=== PATIENT | female | born 1940 | race Caucasian/White ===

== ENCOUNTER 2017-04-26 07:28 | Inpatient (IN) | payer BC, OTHER ==
[2017-03-25 12:53] VITALS: BMI 28.0
--- NOTE | 2017-03-25 13:24 | PAT Medication Instructions ---
Service Date Mar 25, 2017. Current Home Medication List Amitriptyline Hcl (Elavil), 50 MG PO HS Hydrocodon/Acetaminophen 7.5MG/300MG (Vicodin Es (7.5MG/300MG)), 1 TAB PO Q4 PRN for Pain Lisinopril (Zestril), 40 MG PO QAM Naproxen (Aleve), 220 MG PO BID PRN for Pain Medication Instructions For Your Scheduled Surgery -Stopped at surgeon's instructions: Naproxen (Aleve), 220 MG PO BID PRN for Pain - Hold the following medications the morning of surgery: Lisinopril (Zestril), 40 MG PO QAM - Take the following medications the morning of surgery with a sip of water OTHERWISE NOTHING TO EAT OR DRINK AFTER MIDNIGHT: Hydrocodon/Acetaminophen 7.5MG/300MG (Vicodin Es (7.5MG/300MG)), 1 TAB PO Q4 PRN for Pain (may take if needed up to 4 hours prior to surgery) - Take the following medications as scheduled the night before surgery: Amitriptyline Hcl (Elavil), 50 MG PO HS Hydrocodon/Acetaminophen 7.5MG/300MG (Vicodin Es (7.5MG/300MG)), 1 TAB PO Q4 PRN for Pain If you have any questions please call us at [phone] or [phone] or [phone]
--- NOTE | 2017-03-25 14:19 | DIAGNOSTIC IMAGING REPORT ---
CHEST PREADMISSION(PA/LAT) HISTORY: 76 years-old Female preadmission exam COMPARISON: None available TECHNIQUE: Frontal and lateral views of the chest FINDINGS: Note is made of an azygos lobe and fissure. Cardiac silhouette is within normal limits. There is atherosclerosis of the aorta. No pneumothorax, pleural effusion or focal airspace consolidation. There is no overt pulmonary edema. There is a large hiatal hernia with partially intrathoracic stomach. Moderate degenerative changes are seen within the shoulders bilaterally. There is sigmoidal scoliosis of the thoracolumbar spine. IMPRESSION: 1. No acute cardiopulmonary process. 2. Large hiatal hernia with partially intrathoracic stomach. The above report was generated using voice recognition software. It may contain grammatical, syntax or spelling errors. Electronically signed by: Jason Lehman M.D. 03/25/2017 2:18 PM Dictated Date/Time: 03/25/2017 2:17 PM
[2017-03-25 14:54] LABS: BASO % 0.5 %; BASO ABS # 0.03 K/uL (0-0.2); COMPLETE YES; HEMATOCRIT 46.3 % (37-47); IG% 0.2 %; LYMPH % 28.1 %; LYMPH ABS # 1.58 K/uL (1.2-3.4); MEAN CELL VOLUME 93.3 fL (80-100); MEAN CORPUSCULAR HEMOGLOBIN 30.6 pg (25-34); MEAN CORPUSCULAR HGB CONC 32.8 g/dl (32-36); MEAN PLATELET VOLUME 9.7 fL (7.4-10.4); MONO % 7.3 %; NEUT % 61.9 %; PLATELET COUNT 199 K/uL (130-400); RED BLOOD COUNT 4.96 M/uL (4.2-5.4); WHITE BLOOD COUNT 5.63 K/uL (4.8-10.8)
[2017-03-25 14:58] LABS: URINE APPEARANCE CLEAR (CLEAR); URINE BILIRUBIN NEG (NEG); URINE COLOR YELLOW; URINE NITRITE NEG (NEG); URINE SPECIFIC GRAVITY 1.014 (1.000-1.030); UROBILINOGEN NEG (NEG); ZZUR CULT IF INDIC CLEAN CATCH NO
[2017-03-25 15:04] LABS: MANUAL MICROSCOPIC REQUIRED? NO; REVIEW REQ? NO
[2017-03-25 15:04] LABS: CALCIUM 9.4 mg/dl (8.5-10.1); CREATININE 0.92 mg/dl (0.60-1.20); POTASSIUM 4.6 mmol/L (3.5-5.1)
[2017-04-26] VITALS (8 sets, daily range): BP systolic 116–161; BP diastolic 53–94; PULSE 83–93; TEMP 36.5–37.1; O2SAT 92–98; Ht 162.6 cm; Wt 76.0 kg
[~2017-04-26] VITALS: Ht 162.6 cm; Wt 76.0 kg
[~2017-04-26 07:28] MED LIST: ALBUMIN HUMAN 5% 12.5 GM/250 ML VIAL IV ONE; AMT50 PO; ATROPINE SULFATE 0.1 MG/ML 5ML SYR IV PRN; EpHEDrine SULFATE INJ 50 MG/ML AMP IV PRN; FENTANYL CITRATE INJ 50 MCG/1 ML 2 ML VIAL IV PRN; HYDR-3714 PO; HYDROmorphone INJ 1 MG/ML SYR IV PRN; LACTATED RINGER'S 1000ML 1,000 ML IV SCH; LISI40TA PO; NAPR1TAB9 PO; ONDANSETRON INJ 2 MG/ML 2 ML VIAL IV PRN
[2017-04-26] MEDS ORDERED: MIDAZOLAM HCL 1 MG/ML 2ML VIAL ONE (09:35)
[2017-04-26] MEDS ORDERED: FENTANYL CITRATE INJ 50 MCG/1 ML 2 ML VIAL ONE ×6 (09:35→15:23)
--- NOTE | 2017-04-26 09:45 | History & Physical Bridge Note ---
H&P Re-Evaluation Bridge Note: I have examined the patient, reviewed the History & Physical and in the interval since the performance of the History & Physical I have noted the following changes of clinical significance: No changes noted
--- NOTE | 2017-04-26 09:47 | History and Physical ---
History & Physical Date Apr 26, 2017. Chief Complaint Back and leg pain History of Present Illness The patient is a 76 year old female with complaints of back and leg pain Additional History Hepatic Disease: No Endocrine Disorder: No Kidney Disease: No Hypertension: Yes Heart Disease: No Bleeding Tendencies: No Infectious Diseases: No Allergies Coded Allergies: No Known Allergies (Unverified , 04/26/17) Home Medications Scheduled Amitriptyline Hcl (Elavil), 50 MG PO HS Lisinopril (Zestril), 40 MG PO QAM Scheduled PRN Hydrocodon/Acetaminophen 7.5MG/300MG (Vicodin Es (7.5MG/300MG)), 1 TAB PO Q4 PRN for Pain Naproxen (Aleve), 220 MG PO BID PRN for Pain Physical Examination Skin: warm/dry, no rash Eyes: normal inspection, EOMI, sclerae normal ENT: normal ENT inspection, pharynx normal Head: normocephalic, atraumatic Neck: supple, no adenopathy, trachea midline Respiratory/Chest: lungs clear, normal breath sounds, no respiratory distress Cardiovascular: regular rate, rhythm, no edema, no murmur Abdomen / GI: normal bowel sounds, non tender Back: normal inspection Extremities: normal inspection, normal range of motion Neurologic/Psych: no motor/sensory deficits, alert, normal reflexes, oriented x 3 Diagnosis Lumbar spinal stenosis with degenerative scoliosis Plan of Treatment Lumbar decompression fusion T10 to S1 possible iliac bolts
[2017-04-26] MEDS ORDERED: NURSING VERBAL MED ORDER STA (10:04)
[2017-04-26] MEDS ORDERED: CEFAZOLIN IV 2,000 MG/60 ML D5W IV ONE (10:06)
[2017-04-26] MEDS ORDERED: BUPIVACAINE/EPINEPHRINE 0.5% MPF 1:200,000 30 ML VIAL ONE (10:10)
[2017-04-26] MEDS ORDERED: THROMBIN FOR SOLN 20000 UNIT KIT ONE (10:10)
[2017-04-26] MEDS ORDERED: BACITRACIN 50000 UNIT VIAL ONE (10:10)
[2017-04-26] MEDS ORDERED: HYDROmorphone INJ 2 MG/ML SYR/VIAL ONE ×3 (10:44→15:23)
[2017-04-26] MEDS ORDERED: EpHEDrine SULFATE 50MG/5ML SYR ONE ×2 (12:21→14:02)
[2017-04-26] MEDS ORDERED: PROPOFOL IV EMULSION 10 MG/ML 20 ML VIAL IV ONE (12:21)
[2017-04-26] MEDS ORDERED: DEXAMETHASONE SOD INJ 4 MG/ML VIAL ONE (12:21)
[2017-04-26] MEDS ORDERED: LIDOCAINE HCL 2% 2 ML VIAL (20MG/ML) ONE (12:21)
[2017-04-26] MEDS ORDERED: PHENYLEPHRINE 100MCG/ML 5ML SYR ONE ×2 (12:21→14:02)
[2017-04-26] MEDS ORDERED: VOLUVEN IN NSS ONE (13:40)
[2017-04-26] MEDS ORDERED: CEFAZOLIN SOD 1 GM VIAL ONE (13:40)
[2017-04-26] MEDS ORDERED: NEOSTIGMINE METHYLSULFATE 1 MG/ML 10ML VIAL ONE (14:02)
[2017-04-26] MEDS ORDERED: GLYCOPYRROLATE INJ 0.2 MG/ML VIAL ONE (14:02)
[2017-04-26] MEDS ORDERED: ONDANSETRON INJ 2 MG/ML 2 ML VIAL ONE (14:02)
[2017-04-26] MEDS ORDERED: ROCURONIUM BROMIDE 10 MG/ML 5 ML VIAL IV ONE (14:04)
[2017-04-26] MEDS ORDERED: SODIUM CHLORIDE 0.9% 1000ML 1,000 ML IV SCH (14:37)
[2017-04-26] MEDS ORDERED: LORAZEPAM INJ 0.5 MG in SYRINGE 0 ML IV PRN (14:45)
[2017-04-26] MEDS ORDERED: ACETAMINOPHEN IV 100 ML IV PRN (14:45)
[2017-04-26] MEDS ORDERED: DO NOT ADMINISTER FLU VACCINE PRN ×3 (14:45)
[2017-04-26] MEDS ORDERED: NALOXONE HCL 0.4 MG/1 ML VIAL/CARP IV PRN ×2 (14:45)
[2017-04-26] MEDS ORDERED: DO NOT ADMINISTER PNEUMOCOCCAL VACCINE PRN ×2 (14:45)
[2017-04-26] MEDS ORDERED: METOCLOPRAMIDE HCL INJ 5 MG/ML 2 ML VIAL IV PRN (14:45)
[2017-04-26] MEDS ORDERED: SOD PHOSPHATE/SOD BIPHOSPHATE ENEMA 132 ML BTL PR PRN (14:45)
[2017-04-26] MEDS ORDERED: MAGNESIUM HYDROXIDE SUSP 30 ML UDC PO PRN (14:45)
[2017-04-26] MEDS ORDERED: ACETAMINOPHEN 500 MG TAB PO PRN (14:45)
[2017-04-26] MEDS ORDERED: PROMETHAZINE HCL INJ 12.5 MG in SODIUM CHLORIDE 0.9% 50ML 50 ML IV PRN (14:45)
[2017-04-26] MEDS ORDERED: HYDROmorphone INJ 0.5 MG/0.5 ML SYR IV PRN (14:45)
[2017-04-26] MEDS ORDERED: BISACODYL 10 MG SUPP PR PRN (14:45)
[2017-04-26] MEDS ORDERED: FAMOTIDINE 20 MG TAB PO PRN (14:45)
[2017-04-26] MEDS ORDERED: hydrOXYzine HCL 25 MG TAB PO PRN (14:45)
[2017-04-26] MEDS ORDERED: ALUMINUM/MAGNESIUM SUSP 30 ML UDC PO PRN (14:45)
[2017-04-26] MEDS ORDERED: FLOSEAL HEMOSTATIC MATRIX 10ML TOP ONE (14:46)
--- NOTE | 2017-04-26 14:49 | DIAGNOSTIC IMAGING REPORT ---
LUMBAR SPINE 2 OR 3 VIEW HISTORY: 76 years-old Female T10-S1 DECOMPRESSION/FUSION status post posterior decompression with interbody fusion at L3-L4 and L4-L5 COMPARISON: None available TECHNIQUE: 7 spot fluoroscopic images of the lumbar spine were obtained utilizing 66.4 minutes of fluoroscopy time. FINDINGS: Posterior interbody miguel and screw fusion hardware is seen which appears to extend from L1 through S1. Discectomy changes are seen at L4-L5 and L5-S1. There is convex right curvature of the lumbar spine. Follow-up lumbar spine radiographs may be beneficial to confirm exact levels. No malalignment or complication identified. IMPRESSION: Fluoroscopic assistance as above. The above report was generated using voice recognition software. It may contain grammatical, syntax or spelling errors. Electronically signed by: Jason Lehman M.D. 04/26/2017 2:48 PM Dictated Date/Time: 04/26/2017 2:45 PM
--- NOTE | 2017-04-26 15:04 | [facility] Operative Report ---
Operative Report Operative Date Apr 26, 2017. Pre-Operative Diagnosis Lumbar spinal stenosis with degenerative scoliosis Post-Operative Diagnosis Lumbar spinal stenosis with degenerative scoliosis Procedure(s) Performed #1 lumbar decompression medial facetectomies foraminotomies L1 to L2 3 L3 4 L4 5. #2 posterior spinal fusion T11 to S1. #3 bilateral SI joint fusions. #4 placement posterior segmental instrumentation T12 to S1 with bilateral iliac bolts. #5 interbody fusion L3 4 L4 5. #6 placement peek cage 12 x 22 mm L3 4 and 12 x 22 mm at L4 5. #7 placement of locally harvested morcellized autograft in the posterior lateral gutters. #8 placement infuse collagen sponge about mask graft the posterior gutters and DBM in the interbody spaces. Surgeon Armature Winder Repairer Surgeon(s) Mata Nicholas PA-C Estimated Blood Loss 1325 ML Findings Severe spinal stenosis with degenerative scoliosis Specimens None per surgeon Description of Procedure Patient was met with preoperatively case discussed all questions are dressed. After informed consent patient was taken back to the operative suite and underwent intubation placed in a prone position on the Armin table on top Rian frame. All bony prominences were well-padded eyes inspected to ensure no external pressure. This time the thoracal lumbar spine was prepped and draped in the normal sterile fashion. Sharp dissection with the assistance of Bovie cautery was performed onto an exposing the lamina and transverse processes of T12 L1 L2 L3 L4 L5 sacral Michelle and bilateral SI joints. From a caudal to cephalad fashion laminectomy of L4 L3 L2 L1 was performed addressing severe lateral recess and foraminal disease. After this complete pedicle screws were placed in T12 L1 L2 L3-L4 L5-S1 and bilateral iliac bolts. Through a transforaminal port and left complete discectomy of L4 5 was performed and plate created to subcortical bleeding bone and a 12 x 22 mm peek cage filled with DBM tapped in position. I then proceeded L3 4 on the right. And again through a transforaminal approach complete discectomy was performed and plate created to subcortical bleeding bone and a 12 x 22 motor peek cage filled with DBM tapped in position. Purposes rods were then contoured locked and final position bilaterally. This point the transverse processes of T11-T12 L1 L2 L3 L4-L5 sacral Michelle in the bilateral SI joints were burred to subcortical bleeding bone. Infuse collagen sponge mask graft for fact directly into the SI joints in in the posterior lateral gutters. 15 round SAVITA drain was inserted. Incision was closed with 1 Vicryl in the fascia 2-0 Vicryl subcutaneous 40 Monocryl for final skin closure Steri-Strips sterile dressings placed. Patient we can take PACU stable condition. Please note Lauro Nicholas was present throughout the entire procedure involved in patient stationing complex portions of the procedure and final skin closure. I attest to the content of the Intraoperative Record and any orders documented therein. Any exceptions are noted below.
[2017-04-26] MEDS ORDERED: HYDROmorphone HCL 0.5MG/ML 50 ML CASSETTE ONE (15:23)
[2017-04-26] MEDS: ONDANSETRON INJ 2 MG/ML 2 ML VIAL IV PRN (15:43)
--- NOTE | 2017-04-26 15:59 | Anesthesiology Progress Note ---
Anesthesia Post Op Note Date & Time Apr 26, 2017 at 15:58 Vital Signs Pain Intensity: 6 Vital Signs Past 12 Hours Date Time Temp Pulse Resp B/P (MAP) Pulse Ox O2 Delivery O2 Flow Rate FiO2 04/26/17 15:25 36.0 93 16 108/82 100 Oxymask 10 04/26/17 08:15 36.6 88 20 161/94 Notes Mental Status: alert / awake / arousable, participated in evaluation Pt Amnestic to Procedure: Yes Nausea / Vomiting: adequately controlled Pain: adequately controlled Airway Patency, RR, SpO2: stable & adequate BP & HR: stable & adequate Hydration State: stable & adequate Anesthetic Complications: no major complications apparent
[2017-04-26] MEDS ORDERED: NURSING VERBAL MED ORDER ONE (16:00)
[2017-04-26] MEDS ORDERED: PROMETHAZINE HCL INJ 6.25 MG in SODIUM CHLORIDE 0.9% 50ML 50 ML IV PRN (16:15)
[2017-04-26] MEDS: HYDROmorphone HCL 0.5MG/ML 50 ML CASSETTE IV PRN ×2 (16:51→19:11)
[2017-04-26] MEDS: LACTATED RINGER'S 1000ML 1,000 ML IV SCH ×2 (16:53→20:44)
[2017-04-26] MEDS ORDERED: HYDROmorphone INJ 1 MG/ML SYR IV PRN (18:00)
[2017-04-26] MEDS: DEXAMETHASONE INJ 6 MG in SYRINGE 0 ML IV SCH (18:27)
--- NOTE | 2017-04-26 20:17 | Medical Consult ---
Consultation Date of Consultation: Apr 26, 2017. Attending Physician: Bubba Freitas D.O. Reason for Consultation: Post Op Medical Management History of Present Illness 76 year old female who is s/p multilevel decompression/fusion today by Dr. Freitas. Patient reports increasing back pain over the past several years. She failed outpatient conservative measures and therefore presented for the planned procedure today. Post operatively the patient is doing well. She reports her pain is well controlled. No numbness or tingling to the BLLE. She denies chest pain and shortness of breath. No abdominal pain or nausea. She denies lightheadedness and dizziness. Alexandra is place draining yellow urine. Past Medical/Surgical History Medical Problems: (1) Depression Status: Chronic (2) HTN (hypertension) Status: Chronic (3) Vaginal enterocele Permanent Comment: s/p repair Status: Chronic Surgical Problems: (1) H/O oophorectomy Status: Chronic (2) History of appendectomy Status: Chronic (3) History of hysterectomy Status: Chronic (4) History of right salpingo-oophorectomy Status: Chronic Family History non contributory due to patient's advanced age Social History Smoking Status: Never Smoker Alcohol Use: none Allergies Coded Allergies: No Known Allergies (Unverified , 04/26/17) Home Medications Vicodin Es (7.5MG/300MG) (Hydrocodon/Acetaminophen 7.5MG/300MG) 1 Tab Tab 1 Tab PO Q4 PRN Aleve (Naproxen) 220 Mg Tab 220 Mg PO BID PRN Elavil (Amitriptyline HCl) 50 Mg Tab 50 Mg PO HS Zestril (Lisinopril) 40 Mg Tab 40 Mg PO QAM Current Inpatient Medications Current Inpatient Medications Medications (Trade) Dose Ordered Sig/Steven Route Start Time Stop Time Status Last Admin Dose Admin Lactated Ringer's 1,000 ml @ 15 mls/hr Q24H IV 04/26/17 06:00 04/27/17 05:59 04/26/17 08:20 15 MLS/HR Dexamethasone Sodium Phosphate 6 mg/Syringe 1.5 ml @ 1 mls/min Q8H IV 04/26/17 18:00 04/27/17 10:02 04/26/17 18:27 1 MLS/MIN Promethazine HCl 12.5 mg/Sodium Chloride 50.5 ml @ 202 mls/hr Q6H PRN IV 04/26/17 14:45 05/26/17 14:44 Ondansetron HCl (Zofran Inj) 4 mg Q6H PRN IV 04/26/17 14:45 05/26/17 14:44 04/26/17 15:43 4 MG Metoclopramide HCl (Reglan Inj) 10 mg Q6H PRN IV 04/26/17 14:45 05/26/17 14:44 Lorazepam (Ativan Tab) 0.5 mg Q8H PRN PO 04/26/17 14:45 05/26/17 14:44 Lorazepam 0.5 mg/ Syringe 0.25 ml @ 1 mls/min Q8H PRN IV 04/26/17 14:45 05/26/17 14:44 Pneumococcal Polysaccharide Vaccine 1 ea PRN PRN N/A 04/26/17 14:45 05/26/17 14:44 Influenza Virus Vacc Triv Types A&B 1 ea PRN PRN N/A 04/26/17 14:45 05/26/17 14:44 Polyethylene (Miralax Powder Packet) 17 gm Q6 PO 04/28/17 06:00 05/28/17 05:59 Bisacodyl (Dulcolax Supp) 10 mg DAILY PRN SD 04/26/17 14:45 05/26/17 14:44 Magnesium Hydroxide (Milk Of Magnesia Susp) 30 ml DAILY PRN PO 04/26/17 14:45 05/26/17 14:44 Hydromorphone HCl (Dilaudid Inj) 0.5 mg Q3H PRN IV 04/26/17 14:45 05/10/17 14:44 Future hold Oxycodone HCl (Roxicodone Immediate Rel Tab) 5-10mg prn moderate to sev... Q4H PRN PO 04/27/17 06:00 05/11/17 05:59 Future hold Cefazolin Sodium 2000 mg/Dextrose 60 ml @ 100 mls/hr Q8H IV 04/26/17 18:00 04/27/17 06:35 Lactated Ringer's 1,000 ml @ 150 mls/hr Q6H40M IV 04/26/17 14:37 05/26/17 14:36 04/26/17 16:53 150 MLS/HR Acetaminophen (Tylenol Tab) 1,000 mg Q8H PRN PO 04/26/17 14:45 05/26/17 14:44 Acetaminophen 100 ml @ 400 mls/hr Q8H PRN IV 04/26/17 14:45 05/26/17 14:44 Naloxone HCl (Narcan Inj) 0.1 mg Q5M PRN IV 04/26/17 14:45 05/26/17 14:44 Senna/Docusate Sodium (Senokot S Tab) 2 tab HS PO 04/26/17 21:00 05/26/17 20:59 Sodium Biphosphate/ Sodium Phosphate (Fleet Enema) 132 ml ONE PRN SD 04/26/17 14:45 05/26/17 14:44 Hydroxyzine HCl (Vistaril Tab) 25 mg Q8H PRN PO 04/26/17 14:45 05/26/17 14:44 Al Hydroxide/Mg Hydroxide (Maalox Susp) 30 ml Q6H PRN PO 04/26/17 14:45 05/26/17 14:44 Famotidine (Pepcid Tab) 20 mg Q12 PRN PO 04/26/17 14:45 05/26/17 14:44 Diphenhydramine HCl (Benadryl Cap) 25 mg Q6H PRN PO 04/26/17 14:45 05/26/17 14:44 Naloxone HCl (Narcan Inj) 0.1 mg Q5M PRN IV 04/26/17 14:45 04/27/17 06:00 Hydromorphone HCl (Dilaudid Lithographer Apprentice) 25 mg PRN PRN IV 04/26/17 14:45 04/27/17 06:00 04/26/17 19:11 25 MG Sodium Chloride 1,000 ml @ 15 mls/hr Q24H IV 04/26/17 14:37 04/27/17 06:00 Amitriptyline HCl (Elavil Tab) 50 mg HS PO 04/26/17 21:00 05/26/17 20:59 Lisinopril (Zestril Tab) 40 mg QAM PO 04/27/17 09:00 05/27/17 08:59 Promethazine HCl 6.25 mg/Sodium Chloride 50.25 ml @ 202 mls/hr PRN PRN IV 04/26/17 16:15 04/26/17 23:59 04/26/17 16:15 202 MLS/HR Hydromorphone HCl (Dilaudid Inj) 1 mg Q3H PRN IV 04/26/17 18:00 05/10/17 17:59 Future hold Miscellaneous Information (Discontinue WELFARE SUPERVISOR) 1 ea TODAY@0600 N/A 04/27/17 06:00 04/27/17 06:01 Review of Systems ROS per HPI, all other systems reviewed and negative Physical Exam Date Time Temp Pulse Resp B/P (MAP) Pulse Ox O2 Delivery O2 Flow Rate FiO2 04/26/17 19:52 98 Room Air 04/26/17 19:44 36.6 93 16 116/67 (83) 98 Room Air 04/26/17 18:48 36.6 91 17 118/68 (85) 95 Nasal Cannula 2.0 04/26/17 17:45 36.6 85 17 123/53 (76) 95 Nasal Cannula 1.0 04/26/17 17:24 36.5 89 18 121/65 (83) 97 Nasal Cannula 2.0 04/26/17 16:50 92 Nasal Cannula 2.0 04/26/17 16:50 92 Nasal Cannula 2.0 04/26/17 16:50 36.6 83 18 123/66 (85) 92 Nasal Cannula 2.0 04/26/17 16:30 77 16 134/70 99 Nasal Cannula 2 04/26/17 16:15 36.0 84 20 150/80 98 Nasal Cannula 2 04/26/17 16:05 84 17 159/91 99 Nasal Cannula 2 04/26/17 15:55 98 15 167/94 99 Nasal Cannula 2 04/26/17 15:45 95 19 106/89 100 Oxymask 10 04/26/17 15:35 93 18 136/85 100 Oxymask 10 04/26/17 15:25 36.0 93 16 108/82 100 Oxymask 10 04/26/17 08:15 36.6 88 20 161/94 General Appearance: no apparent distress Head: normocephalic, atraumatic Eyes: normal inspection, sclerae normal ENT: hearing grossly normal Neck: supple, no JVD Respiratory/Chest: lungs clear, normal breath sounds, no respiratory distress Cardiovascular: regular rate, rhythm, no edema, normal peripheral pulses Abdomen/GI: normal bowel sounds, non tender, soft Back: + pertinent finding (s/p back surgery, drain in place draining bloody drainage, pedal pushes and pulls strong BL) Neurologic/Psych: no motor/sensory deficits, alert, normal mood/affect, oriented x 3 Skin: normal color, warm/dry Laboratory Results Last 24 Hours Test 04/26/17 13:45 Hemoglobin 10.4 g/dL Hematocrit 31.0 % Assessment & Plan S/P MULTILEVEL DECOMPRESSION/FUSION - POD#0 - activity and wound care orders as per ortho - pain control with bowel regimen - PT/OT - monitor H/H for acute blood loss anemia and transfuse blood products PRN - will check H/H at 2100; noted 1300ml EBL HTN - BP controlled, continue Lisinopril DEPRESSION - continue Elavil DVT PROPHYLAXIS - TEDs/SCDs per surgery Thank you for this consultation. We will follow the patient with you during their hospital stay. You can reach a [facility] via pager @ . ADDENDUM: I saw this pleasant 76 year old in room 302; doing well, WELFARE SUPERVISOR pump for pain, which is working SAVITA drain is in place, draining bloody discharge Monitor for blood loss anemia Otherwise, stable. PT/OT as per ortho
[2017-04-26] MEDS: DOCUSATE SODIUM/SENNA 50/8.6MG TAB PO SCH (20:44)
[2017-04-26] MEDS: AMITRIPTYLINE HCL 50 MG TAB PO SCH (20:44)
[2017-04-26] MEDS: CEFAZOLIN IV 2,000 MG in DEXTROSE 5% 50ML 50 ML IV SCH (22:01)
[2017-04-27] VITALS (21 sets, daily range): BP systolic 96–149; BP diastolic 56–79; PULSE 80–106; TEMP 36.7–37.2; O2SAT 90–96
[2017-04-27] MEDS: DEXAMETHASONE INJ 6 MG in SYRINGE 0 ML IV SCH ×2 (02:16→10:13)
[2017-04-27] MEDS: LACTATED RINGER'S 1000ML 1,000 ML IV SCH (03:26)
[2017-04-27] MEDS: CEFAZOLIN IV 2,000 MG in DEXTROSE 5% 50ML 50 ML IV SCH (05:29)
[2017-04-27] MEDS ORDERED: NURSING DECISION MEDICATION ORDER SCH (05:30)
[2017-04-27] MEDS ORDERED: DC PCA SCH (06:00)
[2017-04-27] MEDS ORDERED: OXYCODONE HCL IR 5 MG TAB (IMMEDIATE RELEASE) PO PRN (06:00)
[2017-04-27 06:39] LABS: HEMATOCRIT 24.9 % (37-47); IG% 0.5 %; LYMPH % 5.7 %; LYMPH ABS # 0.63 K/uL (1.2-3.4); MEAN CELL VOLUME 91.5 fL (80-100); MEAN CORPUSCULAR HEMOGLOBIN 30.9 pg (25-34); MEAN CORPUSCULAR HGB CONC 33.7 g/dl (32-36); MEAN PLATELET VOLUME 9.4 fL (7.4-10.4); MONO % 4.1 %; NEUT % 89.7 %; PLATELET COUNT 154 K/uL (130-400); RED BLOOD COUNT 2.72 M/uL (4.2-5.4); WHITE BLOOD COUNT 11.06 K/uL (4.8-10.8)
[2017-04-27 07:19] LABS: BUN/CREATININE RATIO 17.4 (10-20); CREATININE 0.78 mg/dl (0.60-1.20)
[2017-04-27 08:01] LABS: COMPLETE YES
--- NOTE | 2017-04-27 08:20 | Progress Note ---
Progress Note Date of Service Apr 27, 2017. Progress Note Patient back pain is well-controlled. Her leg symptoms are improved. She is comfortable at this time. Vital signs are stable. Hematocrit 24.7 this morning. SAVITA drain still significant. Assessment status post thoracal lumbar fusion. Plan at this time a strong suspect her hemoglobin will continue to drift downward. We'll move forward with a transfusion today. Modest exercise and therapy today with increasing therapy Saturday and Saturday. assess her progress we'll assess her progress of the next few days to determine if she is cage return home versus rehabilitation.
[2017-04-27] MEDS: LISINOPRIL 40 MG TAB PO SCH (09:00)
[2017-04-27] MEDS: ONDANSETRON INJ 2 MG/ML 2 ML VIAL IV PRN (12:10)
[2017-04-27] MEDS ORDERED: NURSING VERBAL MED ORDER ONE (13:45)
--- NOTE | 2017-04-27 18:25 | Progress Note ---
Internal Med Progress Note Date of Service: Apr 27, 2017. Provider Documentation: SUBJECTIVE: feeling much better , back pain has much improved participating in PT/OT OBJECTIVE: Vital Signs-as noted below Exam: General-no sign of distress Eyes-sclera non icteric ENT-NAD Neck-no JVD Lungs-CTA Heart-regular S1/S2 Abdomen-soft, non tender Extremities-s/p spinal decompression surgery , SAVITA drain present Neuro-AAo x3, no focal deficit Lab data as noted below. ASSESSMENT & PLAN: S/P MULTILEVEL DECOMPRESSION/FUSION - POD# 1 - activity and wound care orders as per ortho - pain control with bowel regimen - PT/OT ACUTE BLOOD LOSS ANEMIA : Due to post op status S/P 2 UNITS of PRBC transfusion repeat H&H in am HTN - BP controlled, continue Lisinopril DEPRESSION - continue Elavil DVT PROPHYLAXIS - TEDs/SCDs per surgery DISPOSITION per primary team Vital Signs: Date Time Temp Pulse Resp B/P (MAP) Pulse Ox O2 Delivery O2 Flow Rate FiO2 04/27/17 18:13 36.9 93 17 146/70 95 04/27/17 17:01 36.9 94 16 137/69 95 04/27/17 16:00 37.2 95 17 132/75 92 04/27/17 15:41 36.8 90 15 148/75 93 04/27/17 15:20 95 95 04/27/17 15:05 37.2 81 14 121/70 95 04/27/17 14:45 37.1 96 16 130/75 90 04/27/17 14:31 37.0 106 18 128/73 04/27/17 14:01 36.9 98 18 110/70 94 04/27/17 13:29 37.1 101 16 126/79 94 04/27/17 12:29 37.1 91 16 123/69 93 04/27/17 12:04 36.7 95 16 116/65 94 04/27/17 11:33 37.0 87 18 114/64 93 04/27/17 11:15 37.1 95 18 106/63 92 04/27/17 11:06 36.8 93 16 118/59 (78) 92 Room Air 04/27/17 11:03 36.8 93 16 118/59 92 04/27/17 10:49 36.7 93 16 113/67 04/27/17 07:45 Room Air 04/27/17 07:00 36.8 80 16 96/56 (69) 90 Room Air 04/27/17 03:48 36.8 85 18 124/61 (82) 92 Room Air 04/26/17 23:03 37.1 87 18 116/57 (76) 92 Room Air 04/26/17 19:52 98 Room Air 04/26/17 19:45 Room Air 04/26/17 19:44 36.6 93 16 116/67 (83) 98 Room Air 04/26/17 18:48 36.6 91 17 118/68 (85) 95 Nasal Cannula 2.0 Lab Results: Results Past 24 Hours Test 04/26/17 21:35 04/27/17 05:53 Range/Units Hemoglobin 9.7 8.4 12.0-16.0 g/dL Hematocrit 29.0 24.9 37-47 % White Blood Count 11.06 4.8-10.8 K/uL Red Blood Count 2.72 4.2-5.4 M/uL Mean Corpuscular Volume 91.5 80-100 fL Mean Corpuscular Hemoglobin 30.9 25-34 pg Mean Corpuscular Hemoglobin Concent 33.7 32-36 g/dl Platelet Count 154 130-400 K/uL Mean Platelet Volume 9.4 7.4-10.4 fL Neutrophils (%) (Auto) 89.7 % Lymphocytes (%) (Auto) 5.7 % Monocytes (%) (Auto) 4.1 % Eosinophils (%) (Auto) 0.0 % Basophils (%) (Auto) 0.0 % Neutrophils # (Auto) 9.93 1.4-6.5 K/uL Lymphocytes # (Auto) 0.63 1.2-3.4 K/uL Monocytes # (Auto) 0.45 0.11-0.59 K/uL Eosinophils # (Auto) 0.00 0-0.5 K/uL Basophils # (Auto) 0.00 0-0.2 K/uL RDW Standard Deviation 46.3 36.4-46.3 fL RDW Coefficient of Variation 13.8 11.5-14.5 % Immature Granulocyte % (Auto) 0.5 % Immature Granulocyte # (Auto) 0.05 0.00-0.02 K/uL Red Blood Cell Morphology Unremarkable Sodium Level 134 136-145 mmol/L Potassium Level 4.0 3.5-5.1 mmol/L Chloride Level 103 98-107 mmol/L Carbon Dioxide Level 25 21-32 mmol/L Anion Gap 6.0 3-11 mmol/L Blood Urea Nitrogen 14 7-18 mg/dl Creatinine 0.78 0.60-1.20 mg/dl Est Creatinine Clear Calc Drug Dose 61.3 ml/min Estimated GFR () 85.6 Estimated GFR (Non- 73.8 BUN/Creatinine Ratio 17.4 10-20 Random Glucose 145 70-99 mg/dl Calcium Level 8.0 8.5-10.1 mg/dl
[2017-04-27] MEDS: HYDROCODONE/ACETAMOPHEN 5/325MG TAB PO PRN ×2 (18:29→23:23)
[2017-04-27] MEDS: AMITRIPTYLINE HCL 50 MG TAB PO SCH (20:48)
[2017-04-27] MEDS: DOCUSATE SODIUM/SENNA 50/8.6MG TAB PO SCH (20:48)
[2017-04-28] MEDS: HYDROCODONE/ACETAMOPHEN 5/325MG TAB PO PRN ×4 (04:18→23:54)
[2017-04-28 05:58] LABS: HEMATOCRIT 30.4 % (37-47)
[2017-04-28] MEDS: POLYETHYLENE (MIRALAX) 17 GM PACK PO SCH ×4 (05:58→23:54)
[2017-04-28 06:38] LABS: BUN/CREATININE RATIO 18.7 (10-20); CALCIUM 7.6 mg/dl (8.5-10.1); CREATININE 0.76 mg/dl (0.60-1.20); POTASSIUM 3.7 mmol/L (3.5-5.1)
[2017-04-28 07:23] VITALS: BP 152/78; PULSE 97; TEMP 36.6; O2SAT 93
[2017-04-28] MEDS: ONDANSETRON INJ 2 MG/ML 2 ML VIAL IV PRN (08:14)
[2017-04-28] MEDS: LORAZEPAM 0.5 MG TAB PO PRN ×2 (08:14→16:16)
[2017-04-28] MEDS: LISINOPRIL 40 MG TAB PO SCH (09:19)
[2017-04-28] MEDS ORDERED: HYDR-3714 PO (10:20)
--- NOTE | 2017-04-28 10:21 | Discharge Instructions ---
Discharge Instructions Date of Service Apr 28, 2017. Admission Reason for Admission: Spinal Stenosis Discharge Discharge Diagnosis / Problem: lumbar stenosis Discharge Goals Goal(s): Improve function Activity Recommendations Activity Limitations: per Instructions/Follow-up section . Instructions / Follow-Up Instructions / Follow-Up ACTIVITY RECOMMENDATIONS: SELF CARE INSTRUCTIONS AFTER THORACIC/LUMBAR FUSIONS 1. You may walk to your tolerance. It is good exercise for your legs and back. Expect some back and intermittent leg aches and pains. 2. You may perform "counter-top" level activities (make a sandwich, obie with a project, etc.). 3. No bending or lifting of more than 10 pounds or back twisting of any nature (roll like a log when turning in bed). 4. You may ride in a car for 20-30 minutes at a time. No driving until after your first visit with your doctor. 5. Frequent changes of position and restricting sitting to 30 minutes at a time will help limit the amount of back spasms and stiffness you may experience. 6. You may discontinue the use of ambulatory aids (cane, crutches, etc.) once your strength and confidence allow. 7. You may aircraft design engineer the shower and let water strike your incision when you arrive home at least once daily. Do not take a tub bath, sit in a hot tub or go into a swimming pool until after your first recheck in the office. SPECIAL CARE INSTRUCTIONS: VERY IMPORTANT TO READ AND REVIEW A. Your surgical incision has been closed with a cosmetic suture under the skin that will dissolve in about 6 weeks. In 14 days, you can use a pair of clean scissors and cut the suture that is left outside of the skin at the ends of your incision. 1. The small skin tapes can be removed 7 days after surgery if they have not fallen off by that point. 2. You may keep the wound open to air as much as possible to promote healing after post-op day number 5 unless told otherwise by your doctor. 3. If you think the wound looks like it is becoming infected (redness or worsening drainage) and/or you are experiencing fever, chill or worsening back pain and muscle spasms, contact the office so that we may evaluate you as soon as possible. B. Complications are uncommon, but please contact us if you have any signs or symptoms of: 1. wound infection (fever higher than 102.5 degrees F, redness, separation of wound, drainage, or increasing pain from the incision) 2. blood clots in legs (pain, swelling, redness and warmth in legs) 3. urinary tract infection (fever higher than 102.5 degrees F, burning upon urination or increased frequency of urination) 4. nerve problems (inability to walk on your toes or heels, numbness, loss of bowel or bladder control) 5. any other symptoms that concern you C. Please call the office at if you have any concerns or questions about your operation or recovery. D. No smoking! Smoking drastically decreases the chance of a solid fusion. E. Do not take any anti-inflammatory medications (Indocin, Advil, Motrin, Aspirin, Naprosyn, etc.) as these may inhibit the chance of a solid fusion. Tylenol is okay to take for pain. MANAGING PAIN AFTER SPINAL SURGERY 1. Narcotic medication is intended for short-term use and will be provided for surgical pain. Surgical pain usually lasts for a period of 4-6 weeks. Narcotic medication includes Percocet, Vicodin, Darvocet, Tylenol #3 or Lortab. 2. Longer-term pain is more appropriately treated with non-narcotic medication such as Tylenol ES. 3. Muscle spasm is not appropriately treated with narcotics. Muscle relaxers such as Soma, Flexeril or Skelaxin can be used along with Tylenol ES. 4. Remember that we all live with some "aches and pains". This is not unusual or uncommon after an injury or as we get older. a. Back pain is expected and may include muscle spasms for 4 to 6 weeks after surgery. The pain should gradually improve. If the pain worsens for no apparent reason, please contact the office. b. Intermittent leg pain may also be experienced and should not be concerned about unless it worsens for no apparent reason. If so, please contact the office. 5. We will provide appropriate medication within the normal guidelines of their prescribed use. We will also be very cautious and aware of potential abuse and extended duration of patients' medication needs. a. Pain medications are for your comfort and to assist with sleep and rest so that the tissue can heal. They are not provided in order to return to normal activity and should not be used through the day. To do so or worsening pain at night can result from ongoing tissue damage and development of tolerance to the prescribed medicine. 6. Please allow 2-3 days to process refills. Prescriptions will not be mailed but must be picked up at the office. FOLLOW UP VISIT: Keep your scheduled follow-up appointment. Any questions, please call the office at . Current Hospital Diet Patient's current hospital diet: Regular Diet Discharge Diet Recommended Diet: Regular Diet Procedures Procedures Performed: #1 lumbar decompression medial facetectomies foraminotomies L1 to L2 3 L3 4 L4 5. #2 posterior spinal fusion T11 to S1. #3 bilateral SI joint fusions. #4 placement posterior segmental instrumentation T12 to S1 with bilateral iliac bolts. #5 interbody fusion L3 4 L4 5. #6 placement peek cage 12 x 22 mm L3 4 and 12 x 22 mm at L4 5. #7 placement of locally harvested morcellized autograft in the posterior lateral gutters. #8 placement infuse collagen sponge about mask graft the posterior gutters and DBM in the interbody spaces. Pending Studies Studies pending at discharge: no Medical Emergencies . Who to Call and When: Medical Emergencies: If at any time you feel your situation is an emergency, please call 911 immediately. . Non-Emergent Contact Non-Emergency issues call your: Primary Care Provider . "Provider Documentation" section prepared by Bubba Freitas. . VTE Core Measure Inpt VTE Proph given/why not?: Lizbeth Puente, SCD's
--- NOTE | 2017-04-28 10:53 | Progress Note ---
Progress Note Date of Service Apr 28, 2017. Progress Note Patient's lumbar back pain is well-controlled. Leg pain improved. She ambulates with a walker nicely. She tolerated steps today. On exam she is good strength testing. Assessment status post thoracal lumbar fusion. Planned this time will maintain the SAVITA drain today. Hematocrit came up appropriately. Possible discharge home tomorrow pending her progress.
[2017-04-28 15:38] VITALS: BP 127/68; PULSE 88; TEMP 37; O2SAT 94
--- NOTE | 2017-04-28 18:51 | Progress Note ---
Internal Med Progress Note Date of Service: Apr 28, 2017. Provider Documentation: SUBJECTIVE: back has improved doing well in PT/OT offers no complain OBJECTIVE: Vital Signs-as noted below Exam: General-no sign of distress Eyes-sclera non icteric ENT-NAD Neck-no JVD Lungs-CTA Heart-regular S1/S2 Abdomen-soft, non tender Extremities-s/p spinal decompression surgery , SAVITA drain present Neuro-AAo x3, no focal deficit Lab data as noted below. ASSESSMENT & PLAN: S/P MULTILEVEL DECOMPRESSION/FUSION - POD# 2 - activity and wound care orders as per ortho - pain control with bowel regimen - PT/OT ACUTE BLOOD LOSS ANEMIA : Due to post op status S/P 2 UNITS of PRBC transfusion Hb improved appropriately ~ 10 HTN - BP controlled, continue Lisinopril DEPRESSION - continue Elavil DVT PROPHYLAXIS - TEDs/SCDs per surgery DISPOSITION per primary team Vital Signs: Lab Results:
[2017-04-28] MEDS: AMITRIPTYLINE HCL 50 MG TAB PO SCH (20:48)
[2017-04-28] MEDS: DOCUSATE SODIUM/SENNA 50/8.6MG TAB PO SCH (20:48)
[2017-04-28 22:56] VITALS: BP 147/67; PULSE 83; TEMP 37; O2SAT 92
[2017-04-28 23:56] VITALS: BP 135/76; PULSE 88; O2SAT 91
[2017-04-29] MEDS: POLYETHYLENE (MIRALAX) 17 GM PACK PO SCH ×2 (05:31→12:51)
[2017-04-29 05:42] LABS: HEMATOCRIT 32.7 % (37-47)
[2017-04-29 06:15] LABS: BUN/CREATININE RATIO 18.5 (10-20); CALCIUM 7.8 mg/dl (8.5-10.1); CREATININE 0.68 mg/dl (0.60-1.20); POTASSIUM 3.9 mmol/L (3.5-5.1)
[2017-04-29 06:46] VITALS: BP 146/70; PULSE 83; TEMP 36.8; O2SAT 93
[2017-04-29] MEDS: HYDROCODONE/ACETAMOPHEN 5/325MG TAB PO PRN ×2 (07:21→12:51)
[2017-04-29] MEDS: LISINOPRIL 40 MG TAB PO SCH (07:21)
[2017-04-29 09:16] VITALS: BP 146/70; PULSE 83; TEMP 36.8; O2SAT 93
--- NOTE | 2017-04-29 09:46 | Anesthesiology Progress Note ---
Anesthesia Post Op Note Date & Time Apr 29, 2017 at 09:45 Vital Signs Pain Intensity: 7.0 Vital Signs Past 12 Hours Date Time Temp Pulse Resp B/P (MAP) Pulse Ox O2 Delivery O2 Flow Rate FiO2 04/29/17 09:16 36.8 83 16 93 Room Air 04/29/17 07:20 Room Air 04/29/17 06:46 36.8 83 16 146/70 (95) 93 Room Air 04/28/17 23:56 88 135/76 (95) 91 Room Air 04/28/17 23:45 Room Air 04/28/17 22:56 37.0 83 15 147/67 (93) 92 Room Air Notes Mental Status: alert / awake / arousable, participated in evaluation Pt Amnestic to Procedure: Yes Nausea / Vomiting: adequately controlled Pain: adequately controlled Airway Patency, RR, SpO2: stable & adequate BP & HR: stable & adequate Hydration State: stable & adequate Anesthetic Complications: no major complications apparent
[2017-04-29] MEDS: LORAZEPAM 0.5 MG TAB PO PRN (10:10)
--- NOTE | 2017-04-29 11:44 | Discharge Summary ---
Orthopedic Discharge Summary Admission Date/Reason Apr 26, 2017 at 10:00 Spinal Stenosis. Discharge Date/Disposition Apr 29, 2017 Home Diagnosis Principal Diagnosis: Lumbar spinal stenosis Admission Physical Exam As per Admitting History & Physical. Hospital Course Patient underwent multilevel lumbar decompression and fusion tolerated this well as taken to the orthopedic floor postoperatively. Postop day #1 she was transfused 2 units tolerated this well. She progressed nicely with physical therapy fails working well and centrally discharged home. Discharge orders and instructions found on the chart for further review. Discharge Instructions Please refer to the electronic Patient Visit Report (Discharge Instructions) for additional information.
== END 2017-04-29 13:47 | disposition home or self-care (01) | DRG 460 ==
LOC: C.ACU 07:28 → C.3E 10:00 → ENRESERV 15:50
PROVIDERS: ADMIT Orthopaedic Surgery Orthopaedic Surgery of the Spine; ATTEND Orthopaedic Surgery Orthopaedic Surgery of the Spine
PROC: 0SG3071 Fusion of Lumbosacral Joint with Autologous Tissue Substitute, Posterior Approach, Posterior Column, Open Approach (ICD-10-PCS; principal; 2017-04-26 10:15)
PROC: 0SG1071 Fusion of 2 or more Lumbar Vertebral Joints with Autologous Tissue Substitute, Posterior Approach, Posterior Column, Open Approach (ICD-10-PCS; principal; 2017-04-26 10:15)
PROC: 0SG70KZ Fusion of Right Sacroiliac Joint with Nonautologous Tissue Substitute, Open Approach (ICD-10-PCS; principal; 2017-04-26 10:15)
PROC: 0SG80KZ Fusion of Left Sacroiliac Joint with Nonautologous Tissue Substitute, Open Approach (ICD-10-PCS; principal; 2017-04-26 10:15)
PROC: 0RGA071 Fusion of Thoracolumbar Vertebral Joint with Autologous Tissue Substitute, Posterior Approach, Posterior Column, Open Approach (ICD-10-PCS; principal; 2017-04-26 10:15)
PROC: 3E0U0GB Introduction of Recombinant Bone Morphogenetic Protein into Joints, Open Approach (ICD-10-PCS; principal; 2017-04-26 10:15)
PROC: 0SG10AJ Fusion of 2 or more Lumbar Vertebral Joints with Interbody Fusion Device, Posterior Approach, Anterior Column, Open Approach (ICD-10-PCS; principal; 2017-04-26 10:15)
PROC: 0RG6071 Fusion of Thoracic Vertebral Joint with Autologous Tissue Substitute, Posterior Approach, Posterior Column, Open Approach (ICD-10-PCS; principal; 2017-04-26 10:15)
PROC: 0ST20ZZ Resection of Lumbar Vertebral Disc, Open Approach (ICD-10-PCS; principal; 2017-04-26 10:15)
DX: M48.06 Spinal stenosis, lumbar region (principal); D62 Acute posthemorrhagic anemia; M41.86 Other forms of scoliosis, lumbar region; I10 Essential (primary) hypertension; M19.90 Unspecified osteoarthritis, unspecified site; G43.909 Migraine, unspecified, not intractable, without status migrainosus; F32.9 Major depressive disorder, single episode, unspecified; Z79.891 Long term (current) use of opiate analgesic; Z79.899 Other long term (current) drug therapy